=== PATIENT | male | born 1965 | race Caucasian/White ===

== ENCOUNTER → 2019-09-16 | Outpatient (CLI) | payer OTHER ==
[~2019-09-16] MED LIST: ALLOPURINOL; CIPROFLOXACIN500 M1 PO; CLONAZEPAM; COREG; FLAGYL500 MG PO; FUROSEMIDE; LIPITOR40 MG PO; LISINOPRIL; NORCO 5-325 TA1 EACH PO; SIMVASTATIN; ZOLOFT; [UNRECOGNIZED DRUG - REMARK]
== END ==
LOC: SJCVCIMAG 08:55
DX: I11.0 Hypertensive heart disease with heart failure (principal); I50.20 Unspecified systolic (congestive) heart failure; I42.9 Cardiomyopathy, unspecified; E78.5 Hyperlipidemia, unspecified; Z79.899 Other long term (current) drug therapy; G47.33 Obstructive sleep apnea (adult) (pediatric); R55 Syncope and collapse

== ENCOUNTER → 2020-09-16 | Outpatient (CLI) | payer OTHER | LOC: SJCVCIMAG 09:05 | PROVIDERS: ATTEND Internal Medicine | DX: I11.0 Hypertensive heart disease with heart failure (principal); I50.20 Unspecified systolic (congestive) heart failure; I42.9 Cardiomyopathy, unspecified; E78.5 Hyperlipidemia, unspecified ==